=== PATIENT | male | born 1940 ===

== ENCOUNTER 2018-09-21 17:25 | Emergency (ER) | payer MEDICARE, BC, OTHER ==
[2018-09-21 18:36] VITALS: TEMP 96.9
[2018-09-21] MEDS ORDERED: FUROSEMIDE 100 MG SOL IV ONE (18:43)
[2018-09-21] MEDS ORDERED: FUROSEMIDE 40 MG SOL ONE (18:48)
[2018-09-21 21:38] VITALS: BP 145/72; PULSE 83; RESP 13; O2SAT 99
== END 2018-09-21 22:29 | disposition short-term general hospital (02) | DRG 682 ==
LOC: ED 17:25
DX: I12.0 Hypertensive chronic kidney disease with stage 5 chronic kidney disease or end stage renal disease (principal); N18.6 End stage renal disease; E11.22 Type 2 diabetes mellitus with diabetic chronic kidney disease; Z79.4 Long term (current) use of insulin; R06.02 Shortness of breath
CPT/HCPCS: 82962; 93005; 96374; 99283; 99285; J1940